=== PATIENT | male | born 1960 | race Caucasian/White ===

== ENCOUNTER 2018-01-21 13:27 | Inpatient (IN) | payer OTHER ==
[~2018-01-21] VITALS: Ht 167.6 cm; Wt 104.3 kg
--- NOTE | ~2018-01-21 | 2DMMODE ---
[facility] [address] [place] [address] 2 D/M-MODE ECHOCARDIOGRAM Name: CLARK PISANO Room #: 357-[place] [facility] [place] [facility]#: [id number] Admission: 01/21/18 Attend Phys: Ramírez Pacheco MD Discharge: Date of : 60 Date of Service: 01/22/18 1254 Report #: [id number] THIS REPORT FOR: //name// APPROVED REPORT Study performed: 01/22/2018 10:44:10 EXAM: Comprehensive 2D, Doppler, and color-flow Echocardiogram Patient Location: Bedside Room #: 357 Status: routine BSA: 2.12 HR: 63 bpm BP: 155/77 mmHg Other Information Study Quality: Good Indications Murmur Hypertension/HDD 2D Dimensions LVEF(%): 67.33 (>50%) IVSd: 10.82 (7-11mm) LVOT Diam: 19.40 (18-24mm) LVDd: 51.47 mm PWd: 13.98 (7-11mm) Ascending Ao: 29.81 (22-36mm) LVDs: 32.11 (25-40mm) Left Atrium: 33.81 (27-40mm) Aortic Root: 34.62 mm IVC: 2.40 mm Montero's LVEF: 67.33 % Volumes Left Atrial Volume (Systole) Single Plane 4CH: 50.28 mL Single Plane 2CH: 63.76 mL LA ESV Index: 29.58 mL/m2 Aortic Valve AoV Peak Elmer.: 2.80 m/s AO Peak Gr.: 29.46 mmHg LVOT Max P.49 mmHg AO Mean Gr.: 18.67 mmHg LVOT Mean P.36 mmHg AO V2 Mean: 2.03 m/s LVOT Max V: 1.23 m/s AO V2 VTI: 59.91 cm LVOT Mean V: 0.86 m/s ADRIANNE (VTI): 1.52 cm2 LVOT V1 VTI: 30.83 cm ADRIANNE Vmax: 1.29 cm2 [facility] [address] [place] [address] 2 D/M-MODE ECHOCARDIOGRAM Name: CLARK PISANO Room #: 357-[facility]#: [id number] Admission: 01/21/18 Attend Phys: Ramírez Pacheco MD Discharge: Date of : 60 Date of Service: 01/22/18 1254 Report #: [id number] SV (LVOT): 91.04 mL Mitral Valve E/A Ratio: 0.9 MV Decel. Time: 272.46 ms MV E Max Elmer.: 0.92 m/s MV A Elmer.: 0.99 m/s MV PHT: 79.01 ms IVRT: 78.43 ms TDI E/Lateral E': 9.20 Lateral E' Elmer.: 0.10 m/s Pulmonary Vein P Vein S: 0.56 m/s P Vein A: 0.29 m/s P Vein D: 0.44 m/s P Vein S/D Ratio: 1.27 Tricuspid Valve TR Peak Elmer.: 2.64 m/s TR Peak Gr.: 27.81 mmHg Left Ventricle The left ventricle is normal size. There is normal LV segmental wall motion. Mild concentric left ventricular hypertrophy. The left ventricular systolic function is normal. The left ventricular ejection fraction is within the normal range. LVEF is 60-65%. Grade I - abnormal relaxation pattern. Right Ventricle The right ventricle is normal size. The right ventricular systolic function is normal. Atria The left atrium size is normal. The right atrium size is normal. Aortic Valve The aortic valve is mildly calcified, mild-moderately stenotic Mild aortic regurgitation. Calculated aortic valve area is 1.2 cm2 with maximum pressure gradient of 31 mmHg and mean pressure gradient of 19 mmHg. Mitral Valve The mitral valve is normal in structure. [place] [address] 2 D/M-MODE ECHOCARDIOGRAM Name: CLARK PISANO Room #: 357-P [facility] [place] [facility]#: [id number] Admission: 01/21/18 Attend Phys: Ramírez Pacheco MD Discharge: Date of : 60 Date of Service: 01/22/18 1254 Report #: [id number] No evidence of mitral valve stenosis. Tricuspid Valve The tricuspid valve is normal in structure. Trace tricuspid regurgitation. Pulmonic Valve The pulmonary valve is normal in structure. Trace pulmonic regurgitation. Great Vessels The aortic root is normal in size. IVC is normal in size and collapses >50% with inspiration. Pericardium There is no pericardial effusion. <Conclusion> The left ventricular systolic function is normal. There is normal LV segmental wall motion. Mild LVH LVEF 60-65%. Grade I diastolic dysfunction The aortic valve is mildly calcified, mild-moderately stenotic Calculated aortic valve area is 1.2 cm2 with maximum pressure gradient of 31 mmHg and mean pressure gradient of 19 mmHg. Mild aortic regurgitation. The mitral valve is normal in structure. Trace mitral regurgitation. There is no pericardial effusion. <ELECTRONICALLY SIGNED> By: Jeff Nuno MD, FACC 01/22/18 1254 1254 1254 Jeff Nuno MD, FACC /INF
[~2018-01-21 13:27] MED LIST: ASPIRIN325 OR; ATIVAN1 MG PO; HYDROCODON-ACE1 EAC5 OR; LORTAB 5 MG/5001 TA1 PO; MOBIC15 MG OR; NAPROSYN500 MG OR; NIASPAN 500 MG500 M1 OR; PRAVACHOL40 MG OR; PRILOSEC 10MG C10 M1 OR; PRINIVIL20 MG OR
[2018-01-21 19:30] VITALS: BP 156/82
[2018-01-22] VITALS (7 sets, daily range): BP systolic 145–186; BP diastolic 72–100
[2018-01-22 04:27] LABS: ABSOLUTE NEUTROPHILS 4.2 thou/uL (1.4-8.2); BASOPHILS 0.5 % (0.0-2.0); EOSINOPHILS 1.7 % (0.0-3.0); HEMATOCRIT 41.9 % (42.0-52.0); HEMOGLOBIN 14.5 gm/dL (14.0-18.0); MCH 29.4 pg (26.0-34.0); MCHC 34.5 g/dL (28.0-37.0); MCV 85.2 fL (80.0-100.0); PLATELET COUNT 185 thou/uL (150-400); POLYS 59.8 % (36.0-66.0); RBC 4.92 mil/uL (4.50-6.00); RDW 15.6 % (10.5-14.5)
[2018-01-22 05:04] LABS: VLDL 65 mg/dL (<40)
[2018-01-22 05:08] LABS: ANION GAP 9 mmol/L (7-16); BUN 16 mg/dL (7-18); CALCIUM 8.6 mg/dL (8.5-10.1); CHLORIDE 105 mmol/L (98-107); CHOLESTEROL 203 mg/dL (<200); CO2 25 mmol/L (21-32); CREATININE 0.9 mg/dL (0.7-1.3); HDL CHOLESTEROL 40 mg/dL (>40); LDL CHOLESTEROL 98 mg/dL (<100); MAGNESIUM 1.8 mg/dL (1.8-2.4); POTASSIUM 3.4 mmol/L (3.5-5.1); SODIUM 139 mmol/L (136-145); TC:HDL 5.1 Ratio (Not establshd); TROPONIN-I < 0.04 ng/mL (<0.06)
[2018-01-22 05:13] LABS: GLUCOSE 138 mg/dL (74-106); TRIGLYCERIDE 327 mg/dL (<150)
[2018-01-22 16:07] LABS: GLYCOHEMOGLOBIN (HGB A1C) 5.1 % (4.8-5.6)
[2018-01-23 04:17] VITALS: BP 152/86
[2018-01-23 08:35] VITALS: BP 167/102
[2018-01-23 12:56] VITALS: BP 131/75
[2018-01-23 13:42] VITALS: BP 159/83
[2018-01-23 17:51] VITALS: BP 177/83
[2018-01-23 19:37] VITALS: BP 140/81
[2018-01-24 00:20] VITALS: BP 131/62
[2018-01-24 03:30] VITALS: BP 144/79
[2018-01-24] MEDS ORDERED: BENAZEPRIL HCL40 MG PO (07:55)
[2018-01-24] MEDS ORDERED: LOPRESSOR25 PO (07:55)
[2018-01-24 08:00] VITALS: BP 177/91
[2018-01-24 09:40] VITALS: BP 177/91
== END 2018-01-24 10:20 | disposition home or self-care (01) | DRG 65 ==
LOC: 3W 13:27 → ENTRNSPT 01-24 10:05 → EDTRNSPTSTS 01-24 10:07 → 3W 01-24 10:20
PROVIDERS: Nurse Practitioner
PROC: B24BZZ4 Ultrasonography of Heart with Aorta, Transesophageal (ICD-10-PCS; principal; 2018-01-22)
DX: I63.9 Cerebral infarction, unspecified (principal); G81.94 Hemiplegia, unspecified affecting left nondominant side; I10 Essential (primary) hypertension; E78.5 Hyperlipidemia, unspecified; M19.90 Unspecified osteoarthritis, unspecified site; F17.210 Nicotine dependence, cigarettes, uncomplicated; I16.0 Hypertensive urgency; G47.33 Obstructive sleep apnea (adult) (pediatric); G89.29 Other chronic pain; E66.9 Obesity, unspecified; Z68.37 Body mass index [BMI] 37.0-37.9, adult; Z79.82 Long term (current) use of aspirin; Z79.899 Other long term (current) drug therapy; Z88.0 Allergy status to penicillin; Z71.6 Tobacco abuse counseling; Z88.5 Allergy status to narcotic agent; Z88.8 Allergy status to other drugs, medicaments and biological substances; Z83.3 Family history of diabetes mellitus; Z82.49 Family history of ischemic heart disease and other diseases of the circulatory system
CPT/HCPCS: 10879